=== PATIENT | female | born 1980 | race African-American/Black ===

== ENCOUNTER 2017-01-16 08:52 | Day surgery (SDC) | payer BC ==
[2017-01-15 16:40] VITALS: BMI 42.0
[2017-01-16] MEDS ORDERED: MIDAZOLAM HCL 2 MG/2 ML SINGLE DOSE VIAL ONE (11:43)
[2017-01-16] MEDS ORDERED: ROCURONIUM BROMIDE 50 MG/5 ML VIAL ONE (11:44)
[2017-01-16] MEDS ORDERED: ceFAZolin SODIUM 1 GM VIAL ONE (12:13)
[2017-01-16] MEDS ORDERED: ceFAZolin SODIUM 1 GM VIAL IVPB ONE (12:15)
[2017-01-16] MEDS ORDERED: PROPOFOL 20 ML ONE (12:21)
[2017-01-16] MEDS ORDERED: HYDROmorphone HCL/PF 1 MG/ML VIAL (FOR PYXIS CHARGING ONLY) ONE ×2 (12:30→13:27)
[2017-01-16] MEDS ORDERED: DEXAMETHASONE SOD PHOSPHATE 4 MG/1 ML VIAL ONE (12:33)
[2017-01-16] MEDS ORDERED: ONDANSETRON 4 MG/2 ML VIAL ONE (12:33)
--- NOTE | 2017-01-16 12:44 | HP ---
DATE OF ADMISSION: 01/16/2017 PREOPERATIVE DIAGNOSIS: Morbid obesity. HISTORY OF PRESENT ILLNESS: The patient is a 36-year-old woman with a history of morbid obesity for many years despite multiple attempts at dietary weight loss. She received nutritional, psychological, and cardiac evaluation and clearance prior to being admitted for elective laparoscopic gastric band surgery. PAST MEDICAL HISTORY: Shows some history of depression and also a history of back pain. PAST SURGICAL HISTORY: Repair of eye surgery for injuries. MEDICATIONS: The patient takes no medications. ALLERGIES: No known allergies. REVIEW OF SYSTEMS: Neurologic: Within normal limits. Cardiovascular: Within normal limits. Pulmonary: Within normal limits. Gastrointestinal: Within normal limits. Musculoskeletal: Back pain and bilateral knee pain. PHYSICAL EXAMINATION: General: A 36-year-old woman, awake, alert, and morbidly obese. HEENT: No masses palpated. Lungs: Clear bilaterally. Heart: Regular sinus rhythm. Abdomen: Positive for obesity. Soft, nontender on palpation. Extremities: No swelling. No cyanosis. IMPRESSION: Morbid obesity. PLAN: Bring to the operating room for laparoscopic gastric band surgery. Duy [id number]
[2017-01-16] MEDS ORDERED: NEOSTIGMINE METHYLSULFATE 0.5 MG/ML - 10 ML MDV ONE (13:01)
[2017-01-16] MEDS ORDERED: GLYCOPYRROLATE 0.2 MG/1 ML VIAL ONE (13:01)
[2017-01-16] MEDS ORDERED: HYDROmorphone HCL CARPU-JECT 1 MG/1 ML DISP.SYRIN IVPB PRN (13:29)
[2017-01-16] MEDS ORDERED: ONDANSETRON 4 MG/2 ML VIAL IVPB PRN (13:29)
[2017-01-16] MEDS ORDERED: SODIUM CHLORIDE 1,000 ML IV SCH (13:30)
[2017-01-16] MEDS ORDERED: ENOXAPARIN NA (PORCINE) 40 MG/0.4 ML DISP.SYRIN SQ ONE (13:45)
[2017-01-16] MEDS ORDERED: oxyCODONE HCL 5 MG TABLET PO PRN (13:52)
[2017-01-16] MEDS ORDERED: FAMOTIDINE 20 MG/50 ML IVPB 50 ML IVPB ONE (14:10)
[2017-01-16] MEDS ORDERED: FAMOTIDINE 20 MG PREMIXED IVPB IVPB ONE (14:15)
[2017-01-16 14:25] LABS: MCH 27.8 pg (25.7-33.7); MCHC 31.6 g/dl (32.0-36.0); MEAN PLT VOLUME 8.9 fl (7.5-11.1); PLATELET COUNT 169 K/MM3 (134-434); RDW 13.8 % (11.6-15.6); WHITE BLOOD COUNT 7.4 K/mm3 (4.0-10.0)
[2017-01-16 14:45] LABS: ANION GAP 8 (8-16); CALCIUM 8.6 mg/dL (8.5-10.1); CO2 27 mmol/L (21-32); CREATININE 0.7 mg/dL (0.55-1.02); GLUCOSE,RANDOM 90 mg/dL (74-106)
--- NOTE | 2017-01-16 15:10 | OP ---
DATE OF OPERATION: 01/16/2017 PREOPERATIVE DIAGNOSIS: Morbid obesity. POSTOPERATIVE DIAGNOSIS: 1. Morbid obesity. 2. Hepatomegaly. PROCEDURE PERFORMED: 1. Gastric band for gastric restriction. 2. Wedge biopsy of left lobe of the liver. 3. Diagnostic laparoscopy. OPERATING SURGEON: Jovany Rhodes MD SECURITY TEST ENGINEER: Victor Hugo Azul MD. ANESTHESIA: General. DESCRIPTION OF THE OPERATION: The patient was taken to the operating room and placed on the OR table in the supine position. All precautions were taken initially including padding for the back and the feet and a Venodyne boot was placed on both lower extremities. At that point the abdomen was prepped and draped in the usual manner. A Veress needle was placed in the left upper quadrant and a pneumoperitoneum established. A no. 12 bladeless trocar was placed in the left upper quadrant and through that trocar the laparoscopic camera was placed. Under direct vision a number. 5 and 15 bladeless trocars were placed in the right upper quadrant and a number 12 bladeless trocar below the left costal margin. A Jose liver retractor was then placed in the epigastrium to retract the left lobe of the liver. The left lobe was noted to be extremely enlarged and difficult to retract because of the size and it overhung the stomach making visualization of the stomach difficult. Because of the size of the liver a wedge biopsy of the liver was performed. With electrocautery turned high, the edge of the inferior surface of the left lobe of the liver was scored with electrocautery on the capsule and this was continued through the parenchyma. The specimen was then removed from the liver and sent off the field to pathology as a specimen. Any bleeding from the parenchyma which was mild was controlled with electrocautery. The patient was then placed in a 20-degree reverse Trendelenburg position and the surgeon retracted the stomach to the patients right side and the events assistant surgeon retracted the omentum inferiorly. Electrocautery was then used to score the peritoneum over the left esophagogastric junction and this continued superiorly until the left singh of the diaphragm was noted. At this point, the stomach was pulled to the patients left side by the events assistant surgeon as the operating surgeon directed toward the left curvature side of the stomach. Here there was scar tissue between the undersurface of the liver and the lesser curvature and this was dissected with electrocautery. Enough scar tissue was dissected that the caudate lobe came into view. The caudate lobe was retracted slightly toward the patients right side and the right singh of the diaphragm were noted. The peritoneum anterior to it was then scored with electrocautery and the laparoscopic instrument was then directed from the right to left singh until it was free in the left lower quadrant of the abdomen. The gastric band which was an AP standard band was then prepped by the OR team and placed in the number 15 port site. The band tube was then placed with the laparoscopic instrument which was pulled and withdrawn to the patients right side. The band tube was placed with a band buckle which was tied with down and the band was rotated to the patients right side. The laparoscope instrument easily fit between the band and the anterior stomach wall. The apparent and subtle plates of the Endostix were used to grab by the stomach as well as above and below the band and tied over the band. When it was completed the band tubing was brought out of the number 15 trocar site under direct vision. All trocars were removed and the pneumoperitoneum was released. The number 15 port site was extended laterally and dissected to continue with electrocautery down to the right anterior rectus muscle fascia. Next 2-0 Prolene sutures were placed on 3 sides and then the 4th was attached o the right anterior rectus muscle. At that point all trocar sites received 0.25% Marcaine were closed with 4-0 Biosyn in a subcuticular fashion. The next site where the port was was first closed with 3-0 Vicryl in the subcutaneous tissue followed by 4-0 Biosyn. The dressings were applied. The patient awoke form anesthesia and transferred out of the operating room to the recovery room in stable condition. ESTIMATED BLOOD LOSS: 30 mL. The patient was transferred to the recovery room in stable condition. Duy [id number]
[2017-01-16 16:25] VITALS: TEMP 97.7
[2017-01-16 17:15] VITALS: PULSE 52
[2017-01-16 18:31] VITALS: BP 127/77
[2017-01-16] MEDS ORDERED: FAMOTIDINE 20 MG/50 ML IVPB 50 ML IVPB SCH (22:00)
--- NOTE | 2017-01-17 14:30 | PATH ---
Surgical Pathology Report Patient Name: MARK HYDE Med. Rec. #: [id number] /Age/Gender: 1980 (Age: 36) / F Account: [id number] Location: [facility] SURGICAL Taken: 01/16/2017 Received: 01/16/2017 Reported: 01/17/2017 Physicians: Jovany Rhodes M.D. Specimen(s) Received LIVER BIOPSY Clinical History Morbid obesity Final Diagnosis LIVER, BIOPSY: SUBCAPSULAR PORTION OF BENIGN LIVER WITH EXTENSIVE THERMAL ARTIFACT, INSUFFICIENT FOR FURTHER CHARACTERIZATION. IRON STAIN SHOWS NO INCREASED IRON DEPOSITION. TRICHROME STAIN HIGHLIGHTS AREAS OF SUBCAPSULAR FIBROSIS. Comment: Needle core biopsy of liver may reach deeper portions of the liver, and avoid cautery artifact, and may be useful for further classification if clinically indicated. Electronically Signed Konstantin Kyle M.D. Gross Description Received in formalin labeled "liver biopsy," is a 1.1 x 1.0 x 0.3 cm aggregate of mata soft tissue fragments. The specimen is submitted in toto in one cassette. /01/16/201701/16/2017
== END 2017-01-16 18:48 | disposition home or self-care (01) ==
LOC: JASU-SURG 08:52
PROVIDERS: ATTEND Surgery
PROC: 0DV64CZ Restriction of Stomach with Extraluminal Device, Percutaneous Endoscopic Approach (ICD-10-PCS; principal; 2017-01-16 10:30)
DX: E66.01 Morbid (severe) obesity due to excess calories (principal); R16.0 Hepatomegaly, not elsewhere classified
CPT/HCPCS: 36415; 74241-TC; 80048; 85027; 88307-TC; 88313-TC; 94760